=== PATIENT | female | born 1990 | race African-American/Black ===

== ENCOUNTER 2021-01-13 19:15 | Emergency (ER) | payer OTHER ==
[~2021-01-13] VITALS: Ht 170.2 cm; Wt 61.0 kg
[2021-01-13] MEDS ORDERED: IBUPROFEN 800MG TABLET PO ONE (20:30)
[2021-01-13 21:41] VITALS: BP 139/79
== END 2021-01-13 21:43 | disposition home or self-care (01) ==
LOC: ER 19:15
DX: M94.0 Chondrocostal junction syndrome [Tietze] (principal)
CPT/HCPCS: 71045; 93005; 99284